=== PATIENT | female | born 1985 | race American Indian/Alaskan Native ===

== ENCOUNTER 2021-04-05 15:07 | Outpatient (CLI) | payer OTHER ==
--- NOTE | 2021-04-05 17:28 | XRay Report ---
LUMBAR SPINE 3 VIEWS INDICATION / CLINICAL INFORMATION: LOW BACK PAIN COMPARISON: None available. FINDINGS: BONES / JOINT(S): No acute fracture or subluxation. No significant arthritis. SOFT TISSUES: No significant abnormality. ADDITIONAL FINDINGS: None. Signer Name: Liam Mora MD Signed: 04/05/2021 5:23 PM Workstation Name: [id number]
--- NOTE | 2021-04-05 17:29 | XRay Report ---
BILATERAL KNEES 3 VIEWS EACH INDICATION / CLINICAL INFORMATION: LATASHA KNEE PAIN COMPARISON: None available. FINDINGS: BONES / JOINT(S): No acute fracture or subluxation. Mild narrowing at the medial compartment bilatera lly. Mild patellofemoral DJD. SOFT TISSUES: No significant abnormality. ADDITIONAL FINDINGS: None. Signer Name: Liam Mora MD Signed: 04/05/2021 5:25 PM Workstation Name: [id number]
== END 2021-04-05 15:08 | disposition home or self-care (01) ==
LOC: XRAY 15:07
PROVIDERS: ATTEND Internal Medicine
DX: M17.0 Bilateral primary osteoarthritis of knee (principal); M54.50 Low back pain, unspecified
CPT/HCPCS: 72100